=== PATIENT | female | born 1955 | race Caucasian/White ===

== ENCOUNTER 2024-02-05 13:39 | Emergency (ER) | payer MEDICARE ==
[~2024-02-05] VITALS: Ht 157.5 cm; Wt 54.0 kg
[2024-02-05 13:45] VITALS: O2SAT 96
[2024-02-05 17:21] VITALS: BP 141/60; TEMP 98.5
[2024-02-05] MEDS: IPRATROPIUM/ALBUTEROL 0.5-3(2.5)MG/3ML NEB HHN ONE (18:10)
[2024-02-05 18:12] VITALS: PULSE 78; RESP 18; O2SAT 94
[2024-02-05] MEDS: PREDNISONE 20MG TABLET PO ONE (18:43)
[2024-02-05 19:05] LABS: TROPONIN I HIGH SENSITIVITY 4 ng/L (3.0-34)
[2024-02-05 19:13] LABS: BASOPHILS % 0.7 % (0.0-2.0); EOSINOPHILS % 9.8 % (0.0-5.0); HEMATOCRIT. 39.1 % (36.0-48.0); HEMOGLOBIN. 12.9 g/dL (12.0-16.0); LYMPHOCYTES % 41.5 % (20.0-50.0); MEAN CORPUSCULAR HEMOGLOBIN 30.6 pg (28.0-32.0); MEAN CORPUSCULAR HGB CONC 33.1 g/dL (31.0-37.0); MEAN CORPUSCULAR VOLUME 92.6 fL (81.0-99.0); MEAN PLATELET VOLUME 8.4 fl (7.4-10.4); MONOCYTES % 4.3 % (2.0-8.0); NEUTROPHILS % 43.7 % (40.0-76.0); PLATELET 282 x1000/uL (130-400); RED BLOOD CELL COUNT 4.22 mill/uL (4.2-5.4); RED CELL DISTRIBUTION WIDTH 13.7 % (11.6-14.6); WHITE BLOOD COUNT 8.3 x1000/uL (4.5-11.0)
[2024-02-05 20:02] LABS: CHLORIDE 108 mEq/L (98-107); SODIUM 139 mEq/L (136-145)
[2024-02-05 20:03] LABS: CALCIUM 9.6 mg/dL (8.7-10.4); CARBON DIOXIDE 26 mEq/L (21-32)
[2024-02-05 20:08] LABS: CREATININE 0.7 mg/dL (0.6-1.0); GLUCOSE 92 mg/dL (70-105); UREA NITROGEN BLOOD 16 mg/dL (9-23)
[2024-02-05] MEDS ORDERED: P50 MT (20:29)
[2024-02-05] MEDS ORDERED: ALBU6.7H15 INH (20:29)
[2024-02-05] MEDS ORDERED: AZIT250T12 MT (20:29)
[2024-02-05] MEDS ORDERED: GUAI600T26 MT (20:29)
== END 2024-02-05 14:52 | disposition home or self-care (01) ==
LOC: ER 13:39
DX: J40 Bronchitis, not specified as acute or chronic (principal); I10 Essential (primary) hypertension; Z98.890 Other specified postprocedural states
CPT/HCPCS: 99285; 71045; 80048; 83880; 85025; 84484; 36415; 94640; 93005; J7512